=== PATIENT | female | born 1995 | race Two or more races ===

== ENCOUNTER 2023-10-06 09:04 | Emergency (ER) | payer OTHER ==
[~2023-10-06] VITALS: Ht 160 cm; Wt 83.0 kg
[2023-10-06 11:08] LABS: HEMATOCRIT 35.3 % (36.0-45.00); HEMOGLOBIN 12.2 g/dL (12.0-15.00); MEAN CELL VOLUME 81.5 fL (80.00-100.00); MEAN CORPUSCULAR HEMOGLOBIN 28.2 pg (27.00-32.0); MEAN CORPUSCULAR HGB CONC 34.6 g/dl (32.0-36.0); PLATELET COUNT 246 K/uL (150-450); RED BLOOD COUNT 4.34 M/uL (4.00-6.00); RED CELL DISTRIBUTION WIDTH 13.3 % (11.5-14.5)
[2023-10-06 11:30] LABS: INR 0.98; PARTIAL THROMBOPLASTIN TIME 29.2 SECONDS (22.0-34.0); PROTHROMBIN TIME 10.7 SECONDS (9.0-11.5)
[2023-10-06 11:41] LABS: ALBUMIN 3.5 gm/dL (3.4-5.0); BILIRUBIN TOTAL 0.19 mg/dL (0.3-1.2); CREATININE SERUM 0.56 mg/dL (0.55-1.02); GFR 127.99; GLOBULINA 3.7 G/DL (2.4-3.5); POTASSIUM 3.86 mEq/L (3.5-5.1); TOTAL PROTEIN 7.2 gm/dL (6.4-8.2)
[2023-10-06 13:21] LABS: PH,URINE 6.5 (5.0-8.0); URINE APPEARANCE Clear; URINE BILIRRUBIN Negative (NEGATIVE); URINE BLOOD Large; URINE COLOR Yellow; URINE GLUCOSE Negative (NEGATIVE); URINE KETONE Negative (NEGATIVE); URINE LEUKOCYTE Trace; URINE NITRATE Negative; URINE PROTEIN Negative (NEGATIVE); URINE UROBILINOGEN 0.2 E.U./dl
[2023-10-06 13:22] LABS: URINE BACTERIA 205.2 uL (0.0-1933); URINE EPITHELIAL CELLS 30.9 uL (0.0-38.8); URINE WBC 19.9 uL (0.0-23.2)
[2023-10-06 13:33] LABS: URINE RBC 0.7 uL (0.0-20.8)
[2023-10-06] MEDS ORDERED: MEPERIDINE HCL 25 MG/ML AMPUL IM ONE (15:45)
== END 2023-10-06 18:11 | disposition home or self-care (01) ==
LOC: ER 09:05
PROVIDERS: Emergency Medicine
DX: O36.4XX0 Maternal care for intrauterine death, not applicable or unspecified (principal); R10.2 Pelvic and perineal pain

== ENCOUNTER 2023-10-11 22:20 | Day surgery (SDC) | payer OTHER ==
[~2023-10-11] VITALS: Ht 162.6 cm; Wt 81.6 kg
--- NOTE | 2023-10-11 22:14 | NUR ---
SE RECIBE PTE ALEWRTA Y ORIENTADA LA CUAL REFIERE VENIR POR CAROLYN DOLOR PELVICO Y ABORTO. PTE CON 13 SEMANAS DE EMBARAZO DE . LORENZO KING. PTE REFIERE TENER PROGRAMADO PROCEDIMIENTO PARA MANANA (RASPE). SE MIDEN S/V Y SE UBICA.
[2023-10-11] MEDS ORDERED: PROMETHAZINE HCL 25 MG/ML AMPUL ONE (22:28)
[2023-10-11] MEDS ORDERED: 0.9 % SODIUM CHLORIDE 1,000 ML IV ONE (22:30)
[2023-10-11] MEDS ORDERED: MEPERIDINE HCL/PF 50 MG/ML VIAL IM ONE (22:30)
[2023-10-11] MEDS ORDERED: PROMETHAZINE HCL 25 MG/ML AMPUL IM ONE (22:30)
--- NOTE | 2023-10-11 22:35 | NUR ---
PTE ALERTA Y ORIENTADA X3, SE EDUCA SOBRE TX MEDICO Y REFIERE ACEPTAR. SE COLECTAN MUESTRAS DE LAB Y SE CANALIZA BAJO MEDIDAS ASEPTICAS. SE ADMINISTRA MED YOLANDA ORDEN MEDICA. PTE AL MOMENTO PRESENTA DESMAYO, SE RAMU SV Y SE DOCUMENTA EN SISTEMA. SE NOTIFICA . PTE BAJO OBSERVACION POR CAMBIOS. PEND UA
--- NOTE | 2023-10-11 22:51 | NUR ---
SE LLAMA SONOGRAFIA DE TURNO Y NO RESPONDE.
[2023-10-11 23:57] LABS: INR 0.96; PARTIAL THROMBOPLASTIN TIME 26.8 SECONDS (22.0-34.0); PROTHROMBIN TIME 10.5 SECONDS (9.0-11.5)
[2023-10-12] LABS: HEMATOCRIT 36.5 % (36.0-45.00); HEMOGLOBIN 12.2 g/dL (12.0-15.00); MEAN CELL VOLUME 81.9 fL (80.00-100.00); MEAN CORPUSCULAR HEMOGLOBIN 27.4 pg (27.00-32.0); MEAN CORPUSCULAR HGB CONC 33.5 g/dl (32.0-36.0); PLATELET COUNT 233 K/uL (150-450); RED BLOOD COUNT 4.46 M/uL (4.00-6.00); RED CELL DISTRIBUTION WIDTH 13.3 % (11.5-14.5)
[2023-10-12 00:07] LABS: PH,URINE 6.5 (5.0-8.0); URINE APPEARANCE Cloudy; URINE BILIRRUBIN Negative (NEGATIVE); URINE BLOOD Large; URINE COLOR Red; URINE GLUCOSE Negative (NEGATIVE); URINE KETONE Negative (NEGATIVE); URINE LEUKOCYTE Small; URINE NITRATE Negative; URINE PROTEIN Trace (NEGATIVE); URINE UROBILINOGEN 0.2 E.U./dl
[2023-10-12 00:10] LABS: URINE BACTERIA 168.8 uL (0.0-1933); URINE WBC 39.5 uL (0.0-23.2)
[2023-10-12 00:26] LABS: ALBUMIN 3.4 gm/dL (3.4-5.0); BILIRUBIN TOTAL 0.11 mg/dL (0.3-1.2); CREATININE SERUM 0.58 mg/dL (0.55-1.02); GFR 122.91; POTASSIUM 3.56 mEq/L (3.5-5.1); TOTAL PROTEIN 7.4 gm/dL (6.4-8.2)
[2023-10-12 00:35] LABS: URINE RBC > 10558.9 uL (0.0-20.8)
--- NOTE | 2023-10-12 05:28 | NUR ---
SE CANALIZA PACIENTE BAJO MEDIDAS ASEPTICAS, VENOPUNCION PATENTE, ARTUR DE EDEMA Y ERITEMA. SE LE COLOCAN IV FLUIDS YOLANDA ORDEN.
--- NOTE | 2023-10-12 07:15 | NUR ---
SE RECIBE PTE FEMINA ALERTA Y ORIENTADA X3 EN CAMA POSICION MAS BAJA CON BARANDAS ELEVADAS POR PRECAUCION PTE CON UN H/L ANGIO #20 EN LT PATENTE, ARTUR DE EDEMA Y ERITEMA. SE MIDEN S/V PTE EN ESPERA DE CONSULTA CON
[2023-10-12] MEDS ORDERED: RINGERS SOLUTION,LACTATED 1,000 ML IV SCH (09:27)
[2023-10-12] MEDS ORDERED: POVIDONE-IODINE 118 ML BOTT TOP ONE (16:57)
[2023-10-13 03:08] VITALS: BP 101/50; O2SAT 100
== END 2023-10-12 23:40 | disposition home or self-care (01) ==
LOC: CIR.AMB 22:20 → ER 22:20 → SEC-K 10-12 10:18 → O/R 10-12 10:18 → ER 10-12 10:18 → SEC-K 10-12 17:46 → O/R 10-12 17:46 → CIR.AMB 10-12 23:40
PROVIDERS: General Practice; ATTEND General Practice
DX: O03.4 Incomplete spontaneous abortion without complication (principal)